=== PATIENT | male | born 1960 | race Caucasian/White ===

== ENCOUNTER 2017-06-17 12:56 | Day surgery (SDC) | payer OTHER ==
[~2017-06-17] VITALS: Ht 165.1 cm; Wt 86.3 kg
[2017-06-17] MEDS ORDERED: HCTZ (13:19)
[2017-06-17] MEDS ORDERED: SIMVASTATIN (13:21)
[2017-06-17] MEDS ORDERED: GLIPIZIDE (13:21)
[2017-06-17] MEDS ORDERED: METFORMIN (13:21)
[2017-06-17] MEDS ORDERED: LISINOPRIL (13:21)
[2017-06-17] MEDS ORDERED: AMLODIPINE (13:21)
[2017-06-17] MEDS ORDERED: NEUROPATHY MED (13:21)
[2017-06-17 13:24] VITALS: Ht 165.1 cm; Wt 86.3 kg
[2017-06-17 14:00] VITALS: BP 142/85; PULSE 97; RESP 18
[2017-06-17] MEDS ORDERED: LIDOCAINE 2% (SDV) 5 ML INJ ONE (14:05)
[2017-06-17] MEDS ORDERED: PROPOFOL 20 ML ONE (14:05)
[2017-06-17] MEDS ORDERED: PHENYLephrine (100 MCG/ML) 5ML SYG ONE (14:07)
--- NOTE | 2017-06-17 15:03 | OPPN ---
Date/Time of Note Date/Time of Note DATE: 06/17/17 TIME: 15:00 Operative Report Preoperative Diagnosis Screening colonoscopy Postoperative Diagnosis Internal hemorrhoids No colon neoplasm is identified Operation/Procedure Performed Colonoscopy Provider: NICOLE JORDAN MD Anesthesia Type: MAC Estimated blood loss: none Transfusion Required: no Specimen: none Grafts/Implants: none Complications: no NICOLE JORDAN MD Jun 17, 2017 15:03
[2017-06-17 15:14] VITALS: BP 123/66; PULSE 82; RESP 14
--- NOTE | 2017-06-17 16:26 | GILP ---
DATE OF PROCEDURE: 06/17/2017 SURGEON: Hu Arias MD PROCEDURE PERFORMED: Colonoscopy. PREOPERATIVE DIAGNOSIS: Screening colonoscopy. POSTOPERATIVE DIAGNOSES: 1. Colonoscopy all the way to the cecum. 2. Internal hemorrhoids. 3. No colon neoplasm was identified. INDICATION: Mr. Amos aCno is a 57-year-old male patient who was scheduled for screening colonoscopy. The procedure and possible complications were well-explained to the patient. He understood and consented to the procedure. DESCRIPTION OF PROCEDURE: Under the influence of anesthesia, the colonoscope was carefully introduced in the rectum. Under direct vision it was advanced all the way to the cecum. FINDINGS: The patient had internal hemorrhoids. No colon neoplasm was identified. He tolerated the procedure very well. There is no complications from the procedure. At the end of procedure he was awake with stable vital signs and he was discharged home in the care of his family. IMPRESSION: 1. Colonoscopy all the way to the cecum. 2. Internal hemorrhoids. 3. No colon neoplasm was identified. PLAN: Next screening colonoscopy in 10 years. Dictated By: MD FANNIE Bagley/aurora/karissa /Document#: [id number] CC: Hu Arias MD;*EndCC*
== END 2017-06-17 15:27 | disposition home or self-care (01) ==
LOC: GIL 12:56
PROVIDERS: ATTEND Internal Medicine Gastroenterology
DX: Z12.11 Encounter for screening for malignant neoplasm of colon (principal); K64.8 Other hemorrhoids; I10 Essential (primary) hypertension; E11.9 Type 2 diabetes mellitus without complications; E78.5 Hyperlipidemia, unspecified; E66.9 Obesity, unspecified; Z68.31 Body mass index [BMI] 31.0-31.9, adult
CPT/HCPCS: 45378; 82962; J2370; Z7610